=== PATIENT | male | born 2000 | race Caucasian/White ===

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

== ENCOUNTER 2024-05-12 07:30 | Inpatient (IN) | payer MEDICAID, OTHER ==
[2024-05-11 20:15] VITALS: BP 138/78; TEMP 97.2; O2SAT 100
[~2024-05-12] VITALS: Ht 188 cm; Wt 86.4 kg
[~2024-05-12 07:30] MED LIST changes: +VENL37.598
[2024-05-12 08:26] LABS: AMPHETAMINES LEVEL URINE NEGATIVE (NEGATIVE); BARBITURATES URINE NEGATIVE (NEGATIVE); BENZODIAZEPINES URINE NEGATIVE (NEGATIVE); COCAINE METABOLITE URINE NEGATIVE (NEGATIVE); METHADONE URINE NEGATIVE (NEGATIVE); PHENCYCLIDINE URINE NEGATIVE (NEGATIVE)
[2024-05-12 08:28] LABS: CANNABINOIDS URINE POSITIVE (NEGATIVE); OPIATES URINE POSITIVE (NEGATIVE)
[2024-05-12 08:49] LABS: HEMATOCRIT 37.5 % (42.0-52.0); HEMOGLOBIN 12.2 g/dl (13.5-17.5); MEAN CORPUSCULAR HEMOGLOBIN 22.5 pg (27.0-33.0); MEAN CORPUSCULAR HGB CONC 32.5 g/dl (32.0-36.5); MEAN CORPUSCULAR VOLUME 69.2 fl (80.0-96.0); PLATELET COUNT, AUTOMATED 246 10^3/uL (150-450); RED BLOOD COUNT 5.42 10^6/uL (4.30-6.10)
[2024-05-12 09:16] LABS: ETHYL ALCOHOL (ETHANOL) < 0.003 % (0.000-0.010)
[2024-05-12 09:18] LABS: ALBUMIN 3.9 G/DL (3.2-5.2); ALKALINE PHOSPHATASE 71 U/L (46-116); ALT/SGPT < 9 U/L (7.0-40); AST/SGOT < 8 U/L (<34); BILIRUBIN,DIRECT 0.3 MG/DL (<0.4); BILIRUBIN,TOTAL 0.9 MG/DL (0.3-1.2); BLOOD UREA NITROGEN 9 MG/DL (9-23); CALCIUM LEVEL 9.4 MG/DL (8.5-10.1); CARBON DIOXIDE LEVEL 28 MMOL/L (20-31); CHLORIDE LEVEL 107 MMOL/L (98-107); CREATININE FOR GFR 0.71 MG/DL (0.70-1.30); GLOMERULAR FILTRATION RATE > 60.0 (>60); GLUCOSE, FASTING 102 MG/DL (60-100); POTASSIUM SERUM 4.2 MMOL/L (3.5-5.1); SALICYLATE LEVEL < 3.0 MG/DL (<30); SODIUM LEVEL 137 MMOL/L (136-145); TOTAL PROTEIN 6.8 G/DL (5.7-8.2)
[2024-05-12 09:20] LABS: THYROID STIMULATING HORMONE 1.013 uIU/ML (0.55-4.78)
[2024-05-12] MEDS ORDERED: BUPR1SUB5 SL (13:02)
[2024-05-12] MEDS ORDERED: PERI0.126 PO (13:10)
[2024-05-12] MEDS ORDERED: HOME MED LIST COMPLETE! XX SCH (13:10)
[2024-05-12] MEDS: NICOTINE 21MG/24HR 1 EA TRANSDERMAL TD ONE (14:33)
[2024-05-12 15:28] LABS: FERRITIN 105.3 NG/ML (10.5-307.3); FOLATE 23.32 NG/ML (>5.4); VITAMIN B12 LEVEL 546 PG/ML (211-911)
[2024-05-12 15:59] LABS: IRON (FE) 113 UG/DL (65-175); PERCENT SATURATION 38.4 % (19.7-50.0); TOTAL IRON BINDING CAPACITY 294 UG/DL (250-425)
[2024-05-12] MEDS ORDERED: IBUPROFEN 400MG TAB PO PRN (18:00)
[2024-05-12] MEDS ORDERED: MAALOX 30 ML SUSP *UDC PO PRN (18:00)
[2024-05-12] MEDS ORDERED: MOM 30ML SUSPENSION UDC PO PRN (18:00)
[2024-05-12] MEDS ORDERED: ACETAMINOPHEN 325 MG TAB PO PRN (18:00)
[2024-05-12 20:00] VITALS: BP 138/78; TEMP 97.2; O2SAT 100
[2024-05-12] MEDS: diphenhydrAMINE 25MG CAP PO PRN (20:49)
[2024-05-12] MEDS: traZODone 50 MG TAB PO PRN (20:49)
[2024-05-12] MEDS: BUPRENORPHINE/NALOXONE 8-2MG SUBLINGUAL TABLET(SUBOXONE) SL ONE (20:53)
[2024-05-13 06:18] VITALS: BP 138/70; TEMP 97.1; O2SAT 99
[2024-05-13] MEDS: NICOTINE 21MG/24HR 1 EA TRANSDERMAL TD SCH (09:00)
== END 2024-05-13 15:06 | disposition home or self-care (01) | DRG 755 ==
LOC: M ED 07:30 → M ED INP 17:57 → M PSY 19:48
PROVIDERS: ADMIT Psychiatry & Neurology Psychiatry; ATTEND Psychiatry & Neurology Psychiatry
DX: F43.20 Adjustment disorder, unspecified (principal); Z81.3 Family history of other psychoactive substance abuse and dependence; F17.290 Nicotine dependence, other tobacco product, uncomplicated; Z63.0 Problems in relationship with spouse or partner; Z88.0 Allergy status to penicillin; Z79.899 Other long term (current) drug therapy; Z91.51 Personal history of suicidal behavior

== ENCOUNTER 2025-05-08 03:14 | Emergency (ER) | payer OTHER, MEDICAID ==
[~2025-05-08] VITALS: Ht 188 cm; Wt 84.1 kg
[~2025-05-08 03:14] MED LIST changes: +BUPR1SUB5 SL; +PERI0.126 PO
[2025-05-08 03:20] VITALS: BP 178/100; TEMP 97.8; O2SAT 98
[2025-05-08] MEDS ORDERED: HYDR-3363 PO (03:25)
[2025-05-08] MEDS ORDERED: QUET50TA4 PO (03:25)
[2025-05-08] MEDS ORDERED: BUSP15TA47 PO (03:25)
[2025-05-08] MEDS ORDERED: TRAZ-252 PO (03:25)
== END 2025-05-08 04:40 | disposition left against medical advice (07) ==
LOC: M ED 03:14
DX: Z53.21 Procedure and treatment not carried out due to patient leaving prior to being seen by health care provider (principal)